=== PATIENT | male | born 1950 ===

== ENCOUNTER → 2018-08-05 | Outpatient (CLI) | payer MEDICARE, OTHER ==
[~2018-08-05] VITALS: Ht 170.2 cm; Wt 73.0 kg
[~2018-08-05] MED LIST: ALBUTEROL 90 MCG PO; ASPI81 PO; BUDE10.2 IH; MELO-107 PO
[2018-08-05 09:02] VITALS: BP 143/76
== END | disposition home or self-care (01) ==
LOC: SRCNTR 08:56
PROVIDERS: ATTEND Internal Medicine
DX: G47.33 Obstructive sleep apnea (adult) (pediatric) (principal); Z87.891 Personal history of nicotine dependence
CPT/HCPCS: G0463